=== PATIENT | male | born 1960 | race Caucasian/White ===

== ENCOUNTER 2016-05-06 04:08 | Observation (INO) | payer BC ==
[~2016-05-06] VITALS: Ht 182.9 cm; Wt 108.9 kg
[2016-05-06] MEDS ORDERED: NITROGLYCERIN 2% OINT 1 INCH PKT TOPICAL ONE (05:46)
[2016-05-06] MEDS ORDERED: ENOXAPARIN 100 MG/ML SYR SUBQ ONE (05:46)
[2016-05-06] MEDS ORDERED: ACETAMINOPHEN 325 MG TAB PO PRN ×2 (06:50→08:15)
[2016-05-06] MEDS ORDERED: TEMAZEPAM 15 MG CAP PO PRN ×2 (06:50→08:15)
[2016-05-06] MEDS ORDERED: MORPHINE 2 MG/ML SYR IV PRN ×2 (06:50→08:15)
[2016-05-06] MEDS ORDERED: ONDANSETRON 4 MG VIAL IV PRN ×2 (06:50→08:15)
[2016-05-06] MEDS ORDERED: NITROGLYCERIN 50 MG/250 ML IV PRN ×2 (06:50→08:15)
[2016-05-06] MEDS ORDERED: DOCUSATE SOD 100 MG CAP PO PRN ×2 (06:50→08:15)
[2016-05-06] MEDS ORDERED: TRAMADOL 50 MG TAB PO PRN ×2 (06:50→08:15)
[2016-05-06] MEDS ORDERED: SALINE FLUSH 10 ML FLUSH PRN ×2 (06:50→08:15)
[2016-05-06] MEDS ORDERED: SODIUM CHLORIDE 0.9% 1,000 ML IV SCH ×2 (06:50→08:15)
[2016-05-06] MEDS ORDERED: NITROGLYCERIN SL 0.4 MG TAB SL PRN ×2 (06:50→08:15)
[2016-05-06] MEDS ORDERED: LORAZEPAM 0.5 MG TAB PO PRN ×2 (06:50→08:15)
[2016-05-06] MEDS ORDERED: SODIUM CHLORIDE 0.9% FLUSH BAG 500 ML IV PRN ×2 (06:50→08:15)
[2016-05-06] MEDS ORDERED: SALINE FLUSH 10 ML FLUSH SCH ×2 (08:00→20:00)
[2016-05-06] MEDS ORDERED: ASPIRIN EC 81 MG TAB PO SCH (08:00)
[2016-05-06] MEDS ORDERED: OXYCODONE/APAP 7.5/325 TAB PO PRN (08:45)
[2016-05-06] MEDS ORDERED: PANTOPRAZOLE 40 MG TAB PO SCH (08:45)
[2016-05-06 09:04] VITALS: BP_SYST 110; RESP 16; TEMP 98.1
[2016-05-06 09:06] VITALS: Ht 182.9 cm; Wt 108.9 kg
[2016-05-06 12:11] VITALS: BP_SYST 147; RESP 18; TEMP 98.4
[2016-05-06 15:11] VITALS: BP_SYST 147; RESP 18; TEMP 98.4
[2016-05-07] MEDS ORDERED: ASPIRIN EC 81 MG TAB PO SCH (08:00)
== END 2016-05-06 14:51 | disposition home or self-care (01) ==
LOC: ENRESERV → ENRESERVDT → ENRESERVTM → ER 04:08 → EMR 06:31 → ENPENDDIS 06:31 → PCU 08:14
PROVIDERS: ADMIT Internal Medicine Cardiovascular Disease; ATTEND Internal Medicine Cardiovascular Disease
DX: R07.9 Chest pain, unspecified (principal); K21.9 Gastro-esophageal reflux disease without esophagitis; E78.5 Hyperlipidemia, unspecified; Z87.891 Personal history of nicotine dependence
CPT/HCPCS: 36415; 71010; 78452; 80053; 82550; 82553; 83735; 84484; 85025; 85610; 85730; 93005; 93017; 93306; 96372